=== PATIENT | female | born 1980 | race Caucasian/White ===

== ENCOUNTER 2016-07-28 11:19 | Emergency (ER) | payer OTHER ==
[2016-07-28 11:42] VITALS: BP 132/80; PULSE 80; RESP 20; TEMP 97
--- NOTE | 2016-07-28 12:08 | ED ---
Skin/Abscess/FB HPI - General Chief complaint: Skin/Abscess/Foreign Body Stated complaint: Abcess lt under arm Time Seen by Provider: 07/28/16 11:47 Source: patient, RN notes reviewed Mode of arrival: ambulatory Limitations: no limitations - History of Present Illness Initial comments: 36-year-old female presents to emergency Department chief complaint of abscess under the left arm. Patient states that of her about a week now. Patient does admit to a history of abscess but denies any history of MRSA. Patient denies any fever chills with this. Patient denies any drainage or discharge from the area. Patient states she was concerned due to the continued pain and irritation so she thought that she should be evaluated. Patient states that she is not currently having any other symptoms at this time. Patient denies any recent fever, chills, shortness of breath, chest pain, back pain, abdominal pain , nausea vomiting, numbness or tingling, dysuria or hematuria, constipation or diarrhea, headaches or visual changes, or any other current symptoms. - Related Data Home Medications Medication Instructions Recorded Confirmed Pseudoephedrine [Sudafed] 30 mg PO Q4H PRN 07/28/16 07/28/16 Previous Rx's Medication Instructions Recorded Sulfamethox-Tmp 800-160Mg [Bactrim 2 each PO Q12HR #56 tab 07/28/16 DS 800-160 mg] Allergies Allergy/AdvReac Type Severity Reaction Status Date / Time black walnut Allergy Rash/Hives Verified 07/28/16 12:04 venom-honey bee Allergy Swelling Verified 07/28/16 12:04 Review of Systems ROS Statement: Those systems with pertinent positive or pertinent negative responses have been documented in the HPI. ROS Other: All systems not noted in ROS Statement are negative. Past Medical History Past Medical History: GERD/Reflux Additional Past Medical History / Comment(s): pt states her mother told her she had "exercise induced asthma" as a child. History of Any Multi-Drug Resistant Organisms: None Reported Past Surgical History: Appendectomy Past Anesthesia/Blood Transfusion Reactions: No Reported Reaction Past Psychological History: Panic Disorder Smoking Status: Former smoker Past Alcohol Use History: Rare Past Drug Use History: None Reported - Past Family History Mother Family Medical History: Diabetes Mellitus, Thyroid Disorder Father Additional Family Medical History / Comment(s): complications from hiv/aids. General Exam Limitations: no limitations Head exam: Present: atraumatic, normocephalic, normal inspection ENT exam: Present: normal exam, mucous membranes moist Neck exam: Present: normal inspection. Absent: tenderness, meningismus, lymphadenopathy Respiratory exam: Present: normal lung sounds bilaterally. Absent: respiratory distress, wheezes, rales, rhonchi, stridor Cardiovascular Exam: Present: regular rate, normal rhythm, normal heart sounds. Absent: systolic murmur, diastolic murmur, rubs, gallop, clicks Neurological exam: Present: alert, oriented X3, CN II-XII intact. Absent: motor sensory deficit Psychiatric exam: Present: normal affect, normal mood Skin exam: Present: warm, dry, intact, other (Abscess under left armassociated induration or redness.) Course Vital Signs 07/28/16 11:40 Temperature 97 F L Pulse Rate 80 Respiratory 20 Rate Blood Pressure 132/80 O2 Sat by Pulse 99 Oximetry Procedures - Procedures Initial comment: Procedure: Incision and drainage The skin overlying the abscess was prepped with Betadine, and anesthetized with 1% lidocaine without epinephrine. A #11 scalpel was then used to incise the abscess. Some purulent material was then extracted from the lesion. Wound culture obtained. Gauze dressing placed on top, The patient tolerated the procedure well. Medical Decision Making - Medical Decision Making 36-year-old female presents emergency Department chief complaint of left axilla abscess. This time patient underwent I&D. We discussed this Xanax this time we discussed following up on the culture. We discussed return parameters and all patient's questions. She stated that she understood she has been given the plan all cushions have answered. She'll be discharged. Disposition Clinical Impression: Abscess of left axilla Disposition: HOME SELF-CARE Condition: Stable Instructions: Abscess (ED), Abscess Incision and Drainage (ED) Additional Instructions: Please use medication as discussed. Please follow up with family doctor if symptoms have not improved over the next two days. Please return to the emergency room if your symptoms increase or worsen or for any other concerns. Prescriptions: Sulfamethox-Tmp 800-160Mg [Bactrim DS 800-160 mg] 2 each PO Q12HR #56 tab Referrals: Mega Cifuentes MD [Primary Care Provider] - 1-2 days Time of Disposition: 12:08
== END 2016-07-28 12:19 | disposition home or self-care (01) ==
LOC: EC 11:19
DX: L02.412 Cutaneous abscess of left axilla (principal)
CPT/HCPCS: 87070; 87077; 87186; 87205; 99283

== ENCOUNTER → 2016-12-04 | Outpatient (CLI) | payer OTHER ==
--- NOTE | 2016-12-05 08:14 | US ---
EXAMINATION TYPE: US OB <=14 wks transvag DATE OF EXAM: 12/04/2016 COMPARISON: NONE CLINICAL HISTORY: Z36 CONFIRM DATES. EXAM PERFORMED: Transvaginal (TV) and Transabdominal (TA) EXAM MEASUREMENTS: GESTATIONAL AGE / DATING Physician Established: (9 weeks/2 days) EDC: 07/07/2017 Dates by LMP: ( 9 weeks/2 days) EDC: 07/07/2017 Dates by First Scan: This is first scan. Dates by Current Scan for: (8 weeks/6 days) EDC: 07/10/2017 MATERNAL ANATOMY Uterus: 13.0 x 6.3 x 8.5 cm Right Ovary: 3.3 x 2.3 x 2.0 cm Left Ovary: 3.8 x 2.3 x 2.5 cm Post CDS / Adnexa: WNL Presence of free fluid: WNL Presence of corpus luteal cyst: YES Presence of subchorionic bleed: NO GESTATION / SURVEY CRL: 2.4 (9 weeks/1 days) Yolk Sac (normal less than 6mm): 0.29 Heart Rate: 166 bpm Rhythm: Normal IUP: Viable IU Date of LMP: 09/30/2016 Impressions: 1. Single intrauterine gestation estimated at 9 weeks 1 days gestation based on the current crown-rum p length. This would've a calculated EDC of 07/08/2017. 2. Cardiac activity measures 175 bpm
== END | disposition home or self-care (01) ==
LOC: RADUSWWP 15:26
PROVIDERS: ATTEND Obstetrics & Gynecology
DX: Z36 Encounter for antenatal screening of mother (principal); Z3A.09 9 weeks gestation of pregnancy
CPT/HCPCS: 76801; 76817

== ENCOUNTER → 2016-12-24 | Outpatient (CLI) | payer OTHER ==
[2016-12-24 13:00] LABS: CH 30.9; CHCM 34.8; HCT 37.2 % (34.0-46.0); HDW 2.94; HGB 13.2 gm/dL (11.4-16.0); MCH 31.7 pg (25.0-35.0); MCHC 35.5 g/dL (31.0-37.0); MCV 89.3 fL (80.0-100.0); Mean Platelet Volume 6.5; RBC 4.17 m/uL (3.80-5.40); RDW 13.9 % (11.5-15.5); WBC 12.3 k/uL (3.8-10.6)
[2016-12-24 13:10] LABS: Glucose 92 mg/dL (74-99); Non-African American GFR(MDRD) >60 (>60 ml/min/1.73 sqM)
[2016-12-24 13:38] LABS: Hepatitis B Surface Ag Index 0.05
[2016-12-24 19:17] LABS: Treponemal Ab Non-Reactive (Non-Reactive)
== END | disposition home or self-care (01) ==
LOC: LABWHC1 12:06
PROVIDERS: ATTEND Obstetrics & Gynecology
DX: O26.811 Pregnancy related exhaustion and fatigue, first trimester (principal); Z3A.00 Weeks of gestation of pregnancy not specified
CPT/HCPCS: 36415; 82565; 82947; 85027; 86762; 86780; 86850; 86900; 86901; 87340; 87390

== ENCOUNTER 2017-07-07 15:33 | Inpatient (IN) | payer OTHER ==
--- NOTE | 2017-07-14 20:24 | P.HPOB ---
History of Present Illness H&P Date: 07/14/17 Chief Complaint: Induction of labor This is a 37 y.o. female, 2, para 1, with an estimated date of confinement of 07/07/2017, estimated gestational age of 41-1/7 weeks, who presents for induction of labor secondary to postdates. She has good movement and has been doing twice weekly NSTs. She is complaining of irregular contractions. labs: GC/Chlamydia-neg HIV-neg Syphilis antibody-neg Random glucose-92 Hepatitis B surface antigen-neg Hemoglobin-13.2 Rubella-low positive Blood type-O+ Antibody screen-negative Obstetrical ultrasound-normal anatomy One hour Glucola-167 Three-hour Glucola-within normal limits Group B streptococcus-negative Obstetrical history: . History of 1 vaginal delivery at term. Gynecologic history: No history of sexually transmitted diseases Social history: She is single. Review of Systems Constitutional: Denies chills, Denies fever Eyes: denies blurred vision, denies pain Ears, nose, mouth and throat: Denies headache, Denies sore throat Cardiovascular: Denies chest pain, Denies shortness of breath Respiratory: Denies cough Gastrointestinal: Reports abdominal pain (Irregular contractions) Musculoskeletal: Reports low back pain Integumentary: Denies pruritus, Denies rash Neurological: Denies numbness, Denies weakness Psychiatric: Denies anxiety, Denies depression Past Medical History Past Medical History: GERD/Reflux Additional Past Medical History / Comment(s): pt states her mother told her she had "exercise induced asthma" as a child. History of Any Multi-Drug Resistant Organisms: None Reported Past Surgical History: Appendectomy Past Anesthesia/Blood Transfusion Reactions: No Reported Reaction Past Psychological History: Panic Disorder Smoking Status: Former smoker Past Alcohol Use History: Rare Past Drug Use History: None Reported - Past Family History Mother Family Medical History: Diabetes Mellitus, Thyroid Disorder Father Additional Family Medical History / Comment(s): complications from hiv/aids. Medications and Allergies Home Medications Medication Instructions Recorded Confirmed Type Pnv,Calcium 72/Iron/Folic Acid 1 tab PO DAILY 07/14/17 07/14/17 History [ Plus Tablet] Allergies Allergy/AdvReac Type Severity Reaction Status Date / Time black walnut Allergy Rash/Hives Verified 07/28/16 12:04 venom-honey bee Allergy Swelling Verified 07/28/16 12:04 Exam Osteopathic Statement: *. No significant issues noted on an osteopathic structural exam other than those noted in the History and Physical/Consult. HEENT: Within normal limits Heart: Regular rate and rhythm Lungs: Clear to auscultation bilaterally Abdomen: Cervix: 2 cm/60%/-3 heart tones: 140s by Doppler Extremities: Negative Homans Assessment and Plan (1) 41 weeks gestation of Status: Acute Code(s): Z3A.41 - 41 WEEKS GESTATION OF SNOMED Code( s): 76779389 Plan: Proceed with oxytocin induction of labor. Expectant management. Epidural anesthesia if desired.
[2017-07-15] MEDS ORDERED: CARBOPROST TROMETHAMINE 250 MCG/ML 1 ML AMP IM PRN (06:11)
[2017-07-15] MEDS ORDERED: OXYTOCIN 10 UNIT/ML 1 ML VIAL IM PRN (06:11)
[2017-07-15] MEDS ORDERED: OXYTOCIN 20 UNITS/1000 ML NS 1,000 ML IV SCH ×2 (06:11→17:32)
[2017-07-15] MEDS ORDERED: METHYLERGONOVINE 0.2 MG/ML 1 ML AMP IM PRN (06:11)
[2017-07-15] MEDS ORDERED: TERBUTALINE 1 MG/ML VIAL SQ PRN (06:11)
[2017-07-15] MEDS ORDERED: LIDOCAINE 1% 20 ML VIAL (10MG/ML) FOR IV START INTRADERMA PRN (06:11)
[2017-07-15] MEDS ORDERED: LIDOCAINE 1% (PF) 10 MG/ML (30 ML SDV) SQ PRN (06:11)
[2017-07-15] MEDS: LACTATED RINGERS 1,000 ML IV SCH ×2 (06:35→11:23)
[2017-07-15 06:47] LABS: Basophils # (A) 0.1 k/uL (0-0.2); Basophils % (A) 0 %; Eosinophils # (A) 0.3 k/uL (0-0.7); Eosinophils % (A) 2 %; HCT 42.8 % (34.0-46.0); HGB 14.5 gm/dL (11.4-16.0); Lymphocytes # (A) 3.1 k/uL (1.0-4.8); Lymphocytes % (A) 23 %; MCH 31.3 pg (25.0-35.0); MCHC 33.8 g/dL (31.0-37.0); MCV 92.6 fL (80.0-100.0); Mean Platelet Volume 7.4; Monocytes # (A) 0.5 k/uL (0-1.0); Monocytes % (A) 4 %; Neutrophils # (A) 9.1 k/uL (1.3-7.7); Neutrophils % (A) 69 %; Platelet Count 222 k/uL (150-450); RBC 4.62 m/uL (3.80-5.40); RDW 15.3 % (11.5-15.5); WBC 13.2 k/uL (3.8-10.6)
[2017-07-15 08:16] VITALS: BMI 51.6
[2017-07-15] MEDS ORDERED: BUTORPHANOL 1 MG/ML 1 ML VIAL IV PRN (08:48)
[2017-07-15] MEDS ORDERED: SODIUM CHLORIDE 0.9% 100 ML BAG ONE (10:48)
[2017-07-15] MEDS ORDERED: BUPIVACAINE (PF) 0.25% 30 ML VIAL ONE (10:48)
[2017-07-15] MEDS ORDERED: fentaNYL (PF) 50 MCG/ML 5 ML AMP ONE (10:48)
[2017-07-15] MEDS ORDERED: diphenhydrAMINE 25 MG CAP PO PRN (17:32)
[2017-07-15] MEDS ORDERED: ZOLPIDEM 5 MG TAB PO PRN (17:32)
[2017-07-15] MEDS ORDERED: ACETAMINOPHEN TAB 325 MG TAB PO PRN (17:32)
[2017-07-15] MEDS ORDERED: MEASLES-MUMPS-RUBELLA VACC/PF 12,500 UNIT/0.5 ML VIAL SQ ONE (17:32)
[2017-07-15] MEDS ORDERED: LANOLIN CREAM 5 GM TUBE TOPICAL PRN (17:32)
[2017-07-15] MEDS ORDERED: diphenhydrAMINE 50 MG/ML 1 ML VIAL IVP PRN ×2 (17:32)
[2017-07-15] MEDS ORDERED: diphenhydrAMINE 50 MG CAP PO PRN (17:32)
[2017-07-15] MEDS ORDERED: BENZOCAINE/MENTHOL SPRAY 1 GM/SPRAY AEROSOL TOPICAL PRN (17:32)
[2017-07-15] MEDS ORDERED: WITCH HAZEL 1 EACH MED..PAD TOPICAL PRN (17:32)
[2017-07-15] MEDS ORDERED: SIMETHICONE 80 MG CHEWABLE PO PRN (17:32)
[2017-07-15] MEDS ORDERED: HYDROCORTISONE 2.5% RECTAL CREAM 30 GM TUBE RECTAL PRN (17:32)
--- NOTE | 2017-07-15 17:32 | P.PROBDLV ---
Vaginal Delivery Note - . Vaginal Delivery Note: The patient progressed to complete dilation after oxytocin induction of labor and artificial rupture membranes with thick meconium noted. After reaching complete dilation she began pushing. 's head came to a crown. With one further push the 's head delivered across the perineum followed immediately by the remainder the baby. Nose and mouth were bulb suctioned after delivery and was placed on mother's abdomen. Cord was clamped and cut and was taken to warmer for evaluation. Brisk cry was noted. TUBING DRIER was present for delivery. A viable female was noted with scores of 8 at 1 minute and 9 at 5 minutes and weight of 7 lbs. 7 oz. Placenta delivered shortly thereafter, intact, with a three-vessel cord. Uterus contracted fairly well after oxytocin was given and uterine massage was carried out. Bladder was drained with a catheter. Inspection of the perineum revealed a small second-degree perineal laceration. This area was anesthetized with 1% lidocaine and sutured with 3-0 Vicryl suture in a running locked fashion. Estimated blood loss is approximately 200 mL's. Mother and are in stable condition.
[2017-07-15] MEDS: IBUPROFEN 600 MG TAB PO PRN (18:28)
[2017-07-16] MEDS: IBUPROFEN 600 MG TAB PO PRN ×3 (00:16→21:20)
[2017-07-16] MEDS: SENNOSIDES-DOCUSATE SODIUM 1 EACH TAB PO SCH ×3 (06:00→21:21)
--- NOTE | 2017-07-16 08:26 | P.PNOBGVD ---
Subjective - Subjective Principal diagnosis: Status post vaginal delivery day #1 Interval history: Patient is doing well. She is breast-feeding. Lochia is decreasing. Pain is fairly well controlled with ibuprofen. Patient reports: Reports appetite normal, Reports voiding normally, Reports pain well controlled, Reports ambulating normally [place]: doing well, nursing well Objective - Latest Vital Signs Latest vital signs: Vital Signs Temp Pulse Resp BP BP Pulse Ox 07/16/17 08:00 98.8 F 83 16 117/58 97 07/16/17 04:00 97.7 F 80 18 119/67 07/15/17 23:00 97.7 F 86 16 127/67 07/15/17 19:10 92 16 128/57 07/15/17 18:35 97.7 F 88 16 113/54 07/15/17 18:05 95 16 118/73 07/15/17 17:50 94 16 117/68 07/15/17 17:35 93 16 119/57 07/15/17 17:20 96 16 117/56 07/15/17 17:05 98.2 F 101 H 16 133/72 Intake and Output 07/15/17 07/16/17 07/16/17 22:59 06:59 14:59 Output Total 1300 Balance -1300 Output: Urine 900 Straight 600 Estimated Blood Loss 400 Other: # Voids 1 1 # Bowel Movements 1 - Exam Extremities: Present: edema (1+). Absent: tenderness Abdomen: Present: normal appearance, soft. Absent: distention, tenderness Uterus: Present: normal, firm. Absent: tenderness Assessment and Plan Assessment: Impression is status post vaginal delivery day #1 (1) 41 weeks gestation of Current Visit: Yes Status: Acute Code(s): Z3A.41 - 41 WEEKS GESTATION OF SNOMED Code(s): 69083042 Plan: Continue with care today. Anticipate discharge home tomorrow.
[2017-07-16 08:31] LABS: Basophils # (A) 0.1 k/uL (0-0.2); Basophils % (A) 0 %; Eosinophils # (A) 0.1 k/uL (0-0.7); Eosinophils % (A) 1 %; HGB 12.9 gm/dL (11.4-16.0); Lymphocytes # (A) 2.9 k/uL (1.0-4.8); Lymphocytes % (A) 16 %; MCH 31.5 pg (25.0-35.0); MCHC 32.2 g/dL (31.0-37.0); Mean Platelet Volume 7.3; Monocytes # (A) 0.7 k/uL (0-1.0); Monocytes % (A) 4 %; Neutrophils % (A) 78 %; Platelet Count 184 k/uL (150-450); RBC 4.08 m/uL (3.80-5.40); RDW 15.1 % (11.5-15.5)
[2017-07-17 07:54] VITALS: BP 122/83; PULSE 79; RESP 16; TEMP 98.4
[2017-07-17] MEDS: SENNOSIDES-DOCUSATE SODIUM 1 EACH TAB PO SCH (08:10)
--- NOTE | 2017-07-17 10:35 | P.DS ---
Providers Date of admission: 07/15/17 06:01 Expected date of discharge: 07/17/17 Attending physician: Tia Chawla Primary care physician: Esau Ayoub - Discharge Diagnosis(es) (1) Normal vaginal delivery Current Visit: Yes Status: Acute Hospital Course: Pt presented for induction of labor. She underwent normal vaginal delivery. HEr pp course was uncomplicated. She will be discharged home PPD #2 in stable condition to follow up with Dr Chawla in 6 weeks. Plan - Discharge Summary New Discharge Prescriptions: New Ibuprofen [Motrin] 600 mg PO Q6HR PRN #60 tab PRN Reason: Mild Pain Or Fever >= 100.5 Continue Pnv,Calcium 72/Iron/Folic Acid [ Plus Tablet] 1 tab PO DAILY Discharge Medication List Pnv,Calcium 72/Iron/Folic Acid [ Plus Tablet] 1 tab PO DAILY 07/14/17 [ History] Ibuprofen [Motrin] 600 mg PO Q6HR PRN #60 tab 07/16/17 [Rx] Follow up Appointment(s)/Referral(s): Tia Chawla DO [Doctor of Osteopathic Medicine] - 6 Weeks Activity/Diet/Wound Care/Special Instructions: Instructions 1. Do not begin any exercise program for 3 weeks. 2. Do not resume sexual relations for 3 weeks or longer if uncomfortable. 3. You may take tub baths or showers at any time. 4. You may use tampons if desired after 3 weeks. 5. Keep the area of episiotomy (stitches) clean and dry. 6. If you are not nursing, wear a good fitting, supportive bra during the day and limit fluid intake for at least 1 week to prevent breast engorgement. 7. Call the office, [phone], within the next week to make appointment for your 6 week checkup if it has not already been made. 8. Report any of the following occurrences to the doctor promptly: a. Heavy, excessive bleeding b. Chills, fever c. Burning or frequency of urination d. Pain or redness and breasts if nursing e. Increasing pain or swelling in episiotomy (stitches). In addition to the above instructions, the following additional should be followed: 1. No heavy lifting or straining (exercising) until after 6 week checkup. 2. Keep abdominal incision clean and dry: You may wear a dressing if more comfortable. 3. Make office appointment for 10 days after going home or as instructed by her doctor. Discharge Disposition: HOME SELF-CARE
== END 2017-07-17 12:00 | disposition home or self-care (01) | DRG 775 ==
LOC: 4FBP 07-15 06:01
PROVIDERS: ADMIT Obstetrics & Gynecology; ATTEND Obstetrics & Gynecology
PROC: 10E0XZZ Delivery of Products of Conception, External Approach (ICD-10-PCS; principal; 2017-07-15)
PROC: 0KQM0ZZ Repair Perineum Muscle, Open Approach (ICD-10-PCS; 2017-07-15)
PROC: 10907ZC Drainage of Amniotic Fluid, Therapeutic from Products of Conception, Via Natural or Artificial Opening (ICD-10-PCS; 2017-07-15)
PROC: 3E0R3NZ Introduction of Analgesics, Hypnotics, Sedatives into Spinal Canal, Percutaneous Approach (ICD-10-PCS; 2017-07-15)
PROC: 00HU33Z Insertion of Infusion Device into Spinal Canal, Percutaneous Approach (ICD-10-PCS; 2017-07-15)
DX: O48.0 Post-term pregnancy (principal); O70.1 Second degree perineal laceration during delivery; O77.0 Labor and delivery complicated by meconium in amniotic fluid; Z37.0 Single live birth; Z3A.41 41 weeks gestation of pregnancy; Z90.89 Acquired absence of other organs; Z87.891 Personal history of nicotine dependence; Z83.3 Family history of diabetes mellitus; Z83.0 Family history of human immunodeficiency virus [HIV] disease; Z91.030 Bee allergy status; Z91.018 Allergy to other foods; Z86.59 Personal history of other mental and behavioral disorders
CPT/HCPCS: 85025; 88307; 90707

== ENCOUNTER 2020-04-17 06:49 | Day surgery (SDC) | payer OTHER ==
[2020-04-16 11:37] VITALS: BMI 52.4
[~2020-04-17 06:49] MED LIST: LACTATED RINGERS 1,000 ML IV SCH; LIDOCAINE 1% (10MG/ML) FOR IV START INTRADERMA PRN
[2020-04-17 07:30] VITALS: TEMP 97.1
[2020-04-17] MEDS ORDERED: PROPOFOL 10 MG/ML 20 ML VIAL IV ONE (07:53)
[2020-04-17] MEDS ORDERED: GLYCOPYRROLATE 0.2 MG/ML 2 ML VIAL ONE (07:53)
[2020-04-17] MEDS ORDERED: LIDOCAINE 1% INJ 10MG/ML (20 ML MDV) ONE (07:53)
--- NOTE | 2020-04-17 08:02 | P.PCN ---
Date of Procedure: 04/17/20 Procedure(s) Performed: BRIEF HISTORY: Patient is a 40-year-old, pleasant, female scheduled for an upper endoscopy as a part of evaluation of long-standing history of GERD several years duration.. She was recently started on omeprazole 20 mg daily and doing well. PROCEDURE PERFORMED: Esophagogastroduodenoscopy with biopsy. PREOPERATIVE DIAGNOSIS: Long-standing history of GERD. IV sedation per anesthesia. PROCEDURE: After informed consent was obtained, the patient was brought into the endoscopy unit. IV sedation was administered by Anesthesia under continuous monitoring. Initially the Olympus GIF-140 video endoscope was inserted into the mouth. Esophagus intubated without any difficulty. It was gradually advanced into the stomach and duodenum and carefully examined. The bulb and the second part of the duodenum appeared normal. The scope at this time was withdrawn to the stomach, adequately insufflated with air, and upon careful examination, mucosa of the antrum, had mild gastritis and biopsies were done from this area. The body, cardia and the fundus appeared normal. The scope was then withdrawn into the esophagus. The GE junction was located at 41 cm from the incisors. The esophagus appeared normal. There were no erosions or ulcerations seen and the patient tolerated the procedure well. IMPRESSION: 1. Normal-appearing esophagus with no evidence of esophagitis or Leach's esophagus. 2. Mild antral gastritis. RECOMMENDATIONS: The findings of this examination were discussed with the patient as well as a family. She was advised to follow with the biopsy results. Continue omeprazole 20 mg daily and follow antireflux measures..
[2020-04-17 08:33] VITALS: BP 118/77; PULSE 75; RESP 20
== END 2020-04-17 08:51 | disposition home or self-care (01) ==
LOC: ORWHC2ENDO 06:49
PROVIDERS: ATTEND Internal Medicine Gastroenterology
DX: K29.50 Unspecified chronic gastritis without bleeding (principal); K21.9 Gastro-esophageal reflux disease without esophagitis; Z79.899 Other long term (current) drug therapy; E78.5 Hyperlipidemia, unspecified; E66.01 Morbid (severe) obesity due to excess calories; F32.9 Major depressive disorder, single episode, unspecified; Z98.890 Other specified postprocedural states; Z68.43 Body mass index [BMI] 50.0-59.9, adult
CPT/HCPCS: 81025; 88305; 43239; J2001; J2704

== ENCOUNTER 2022-02-25 22:35 | Emergency (ER) | payer OTHER ==
[2022-02-25 22:40] VITALS: TEMP 98.4
--- NOTE | 2022-02-25 23:02 | XR ---
EXAMINATION TYPE: XR foot complete RT DATE OF EXAM: 02/25/2022 COMPARISON: NONE HISTORY: Pain and swelling TECHNIQUE: 3 views FINDINGS: Metatarsals are intact. I see no fracture nor dislocation. There is plantar calcaneal spurr ing. There are no erosions. There is some soft tissue swelling. IMPRESSION: Negative right foot exam. No fracture seen. Calcaneal spurring. Soft tissue swelling of the forefoot.
[2022-02-25] MEDS ORDERED: MORPHINE SULFATE 4 MG/ML SYRINGE IM STA (23:09)
[2022-02-25] MEDS ORDERED: IBUPROFEN 800 MG TAB PO STA (23:09)
--- NOTE | 2022-02-25 23:35 | XR ---
EXAMINATION TYPE: XR ankle complete RT DATE OF EXAM: 02/25/2022 COMPARISON: NONE HISTORY: Pain TECHNIQUE: 3 views FINDINGS: Ankle mortise is anatomic. I see no fracture nor dislocation. There is plantar calcaneal sp urring. There is lateral soft tissue swelling. There is slight widening of the lateral joint space in the frontal projection. IMPRESSION: There is some widening of the lateral ankle joint space could relate to ligamentous tear. Lateral mild soft tissue swelling
--- NOTE | 2022-02-25 23:38 | ED ---
Lower Extremity Injury HPI - General Chief Complaint: Extremity Injury, Lower Stated Complaint: Rt Ankle Injury Time Seen by Provider: 02/25/22 22:54 Source: patient Mode of arrival: ambulatory Limitations: no limitations - History of Present Illness Initial Comments: She is a 42-year-old female who presents to the emergency department with a chief complaint of right foot pain. Patient states she stepped off the sidewalk at her child's school and landed on the outside of her right foot. Patient states initially she did not experience much pain but throughout the day the pain has gotten much worse with worsening of the swelling. Reports severe pain on the top outside of her foot near her ankle. Took Tylenol with little relief. Denies numbness and tingling. - Related Data Home Medications Medication Instructions Recorded Confirmed Escitalopram [Lexapro] 10 mg PO DAILY 04/16/20 04/17/20 Omeprazole [PriLOSEC] 40 mg PO DAILY 04/16/20 04/17/20 Previous Rx's Medication Instructions Recorded HYDROcodone/APAP 7.5-325MG [Bicknell 1 tab PO Q4HR PRN #18 tab 02/25/22 7.5-325] Allergies Allergy/AdvReac Type Severity Reaction Status Date / Time black walnut Allergy Rash/Hives Verified 02/25/22 22:40 venom-honey bee Allergy Swelling Verified 02/25/22 22:40 Review of Systems ROS Statement: Those systems with pertinent positive or pertinent negative responses have been documented in the HPI. ROS Other: All systems not noted in ROS Statement are negative. Past Medical History Past Medical History: GERD/Reflux, Hyperlipidemia, Pneumonia, Skin Disorder Additional Past Medical History / Comment(s): palpitations from panic attacks, "exercise induced asthma" as a child. hx gastritis, rosacea, dermatitis, History of Any Multi-Drug Resistant Organisms: MRSA Date of last positivie culture/infection: 01/06/2016 MDRO Source:: [place] Past Surgical History: Appendectomy Past Anesthesia/Blood Transfusion Reactions: No Reported Reaction Past Psychological History: Anxiety, Panic Disorder Smoking Status: Former smoker Past Alcohol Use History: Occasional Past Drug Use History: None Reported - Past Family History Father Family Medical History: Cancer Additional Family Medical History / Comment(s): from complications from hiv/aids. skin cancer General Exam Limitations: no limitations General appearance: alert, in no apparent distress Head exam: Present: atraumatic, normocephalic, normal inspection Respiratory exam: Present: normal lung sounds bilaterally. Absent: respiratory distress, wheezes, rales, rhonchi, stridor Extremities exam: Present: other (moderate swelling and pain over proximal fifth metatarsal of right foot. moderate swelling of lateral right ankle with significant pain. ROM limited due to pain. neurovascularly intact ) Neurological exam: Present: alert, oriented X3, CN II-XII intact Psychiatric exam: Present: normal affect, normal mood Skin exam: Present: warm, dry, intact, normal color. Absent: rash Course Vital Signs 02/25/22 02/26/22 22:36 00:17 Temperature 98.4 F Pulse Rate 70 78 Respiratory 22 15 Rate Blood Pressure 141/66 O2 Sat by Pulse 97 97 Oximetry Medical Decision Making - Medical Decision Making This is a 42-year-old female who presents with right foot pain. There is moderate swelling and pain over proximal fifth metatarsal of right foot and moderate swelling of the lateral right ankle with significant pain. ROM limited due to pain. Neurovascularly intact. Right foot x-ray is negative for fracture and dislocation. There is some soft tissue swelling. Right foot x-ray shows widening of the lateral ankle joint space that could be related to ligamentous tear. Results discussed with patient. Patient placed in Aircast splint. Crutches given. Patient nonweightbearing until orthopedic evaluation. She'll be sent home with a short course of Bicknell for severe pain. Fracture education provided in detail. Dr. Ho is my attending. Disposition Clinical Impression: Right foot pain, Right ankle pain Disposition: HOME SELF-CARE Condition: Good Instructions (If sedation given, give patient instructions): Foot Sprain (ED) Additional Instructions: Take Bicknell as directed. Please also take anti-inflammatories such as Motrin for the next 48 hours to decrease swelling. Rest and apply ice to injury. Use crutches and do not bear weight until orthopedic evaluation. Schedule appointment with personnel specialist in the morning. Return to the emergency department if you experience new, concerning, or worsening symptoms. Prescriptions: HYDROcodone/APAP 7.5-325MG [Bicknell 7.5-325] 1 tab PO Q4HR PRN #18 tab PRN Reason: Pain Is patient prescribed a controlled substance at d/c from ED?: Yes Referrals: Marc Vasquez MD [Primary Care Provider] - 1-2 days Rafaela Justin DO [Doctor of Osteopathic Medicine] - 1-2 days Time of Disposition: 23:37
[2022-02-26 00:18] VITALS: BP 141/66; PULSE 78; RESP 15
== END 2022-02-26 00:22 | disposition home or self-care (01) ==
LOC: EC 22:35
DX: M25.571 Pain in right ankle and joints of right foot (principal); K21.9 Gastro-esophageal reflux disease without esophagitis; E78.5 Hyperlipidemia, unspecified; F41.9 Anxiety disorder, unspecified; Z87.891 Personal history of nicotine dependence; Z91.018 Allergy to other foods; Z91.030 Bee allergy status; Z79.899 Other long term (current) drug therapy; W10.1XXA Fall (on)(from) sidewalk curb, initial encounter
CPT/HCPCS: 73610; 73630; 99283; 96372; J2270

== ENCOUNTER 2022-11-06 09:18 | Emergency (ER) | payer OTHER ==
--- NOTE | 2022-11-06 10:09 | XR ---
EXAMINATION TYPE: XR knee complete LT DATE OF EXAM: 11/06/2022 CLINICAL HISTORY: Trauma injury with pain TECHNIQUE: Three views of the left knee are obtained. COMPARISON: None. FINDINGS: There is no acute fracture/dislocation evident in left knee. Moderate narrowing medial tib iofemoral compartment. Mild to moderate narrowing and mild spurring patellofemoral compartment. The overlying soft tissue appears unremarkable. IMPRESSION: There is no acute fracture or dislocation in the left knee.
[2022-11-06] MEDS ORDERED: HYDROmorphone 0.5 MG/0.5 ML SYRINGE IVP STA (10:21)
[2022-11-06] MEDS ORDERED: KETOROLAC 15 MG/ML 1 ML VIAL IVP STA (10:21)
--- NOTE | 2022-11-06 10:27 | ED ---
Lower Extremity Injury HPI - General Chief Complaint: Extremity Injury, Lower Stated Complaint: Left knee pain Time Seen by Provider: 11/06/22 09:21 Source: patient, RN notes reviewed Mode of arrival: ambulatory Limitations: no limitations - History of Present Illness Initial Comments: 42-year-old female presents emergency Department chief complaint left knee injury. Patient reportedly fell into a curb with his metal sticking out. Tetanus up-to-date. Patient noted to have an abrasion to her left knee. Patient was given morphine prior arrival of pain. Patient states it's very painful to move denies any pain above or below her left knee no head injury no other complaints. - Related Data Home Medications Medication Instructions Recorded Confirmed Escitalopram [Lexapro] 10 mg PO DAILY 04/16/20 04/17/20 Omeprazole [PriLOSEC] 40 mg PO DAILY 04/16/20 04/17/20 Previous Rx's Medication Instructions Recorded HYDROcodone/APAP 7.5-325MG [Gamaliel 1 tab PO Q4HR PRN #18 tab 02/25/22 7.5-325] HYDROcodone/APAP 7.5-325MG [Gamaliel 1 tab PO Q6HR PRN 3 Days #12 tab 11/06/22 7.5-325] Allergies Allergy/AdvReac Type Severity Reaction Status Date / Time black walnut Allergy Rash/Hives Verified 11/06/22 09:32 venom-honey bee Allergy Swelling Verified 11/06/22 09:32 Review of Systems ROS Statement: Those systems with pertinent positive or pertinent negative responses have been documented in the HPI. ROS Other: All systems not noted in ROS Statement are negative. Past Medical History Past Medical History: GERD/Reflux, Hyperlipidemia, Pneumonia, Skin Disorder Additional Past Medical History / Comment(s): palpitations from panic attacks, "exercise induced asthma" as a child. hx gastritis, rosacea, dermatitis, History of Any Multi-Drug Resistant Organisms: MRSA Date of last positivie culture/infection: 01/06/2016 MDRO Source:: ROSA Past Surgical History: Appendectomy Past Anesthesia/Blood Transfusion Reactions: No Reported Reaction Past Psychological History: Anxiety, Panic Disorder Smoking Status: Former smoker Past Alcohol Use History: Occasional Past Drug Use History: None Reported - Past Family History Father Family Medical History: Cancer Additional Family Medical History / Comment(s): from complications from hiv/aids. skin cancer General Exam Limitations: no limitations General appearance: alert, in no apparent distress Head exam: Present: atraumatic, normocephalic, normal inspection Eye exam: Present: normal appearance, PERRL, EOMI. Absent: scleral icterus, conjunctival injection, periorbital swelling ENT exam: Present: normal exam, normal oropharynx, mucous membranes moist Neck exam: Present: normal inspection, full ROM. Absent: tenderness, meningismus, lymphadenopathy Respiratory exam: Present: normal lung sounds bilaterally. Absent: respiratory distress, wheezes, rales, rhonchi, stridor Cardiovascular Exam: Present: regular rate, normal rhythm, normal heart sounds. Absent: systolic murmur, diastolic murmur, rubs, gallop, clicks Extremities exam: Present: other (Left knee anterior abrasion noted, pain with palpation and any formal range of motion neurovascular intact no tenderness above or below the left knee) Neurological exam: Present: alert Skin exam: Present: warm, dry, intact, normal color. Absent: rash Course Vital Signs 11/06/22 11/06/22 09:29 11:38 Temperature 97.8 F 97.9 F Pulse Rate 67 68 Respiratory 20 16 Rate Blood Pressure 131/80 129/76 O2 Sat by Pulse 100 100 Oximetry Medical Decision Making - Medical Decision Making Was pt. sent in by a medical professional or institution (JIMMY Reddy, [employer]WORK ARCHITECT, urgent care, hospital, or custodial...) When possible be specific @ -No Did you speak to anyone other than the patient for history (EMS, parent, family, police, friend...)? What history was obtained from this source @ -EMS provided prehospital medications, injury Did you review nursing and triage notes (agree or disagree)? Why? @ -I reviewed and agree with nursing and triage notes Were old charts reviewed (outside hosp., previous admission, EMS record, old EKG, old radiological studies, urgent care reports/EKG's, custodial records)? Report findings @ -No old charts were reviewed Differential Diagnosis (chest pain, altered mental status, abdominal pain women, abdominal pain men, vaginal bleeding, weakness, fever, dyspnea, syncope, headache, dizziness, GI bleed, back pain, seizure, CVA, palpatations, mental health, musculoskeletal)? @ -Knee contusion, patellar fracture, femur fracture, tibia fracture EKG interpreted by me (3pts min.). @ -None X-rays interpreted by me (1pt min.). @ -X-ray shows no acute fracture CT interpreted by me (1pt min.). @ -None done U/S interpreted by me (1pt. min.). @ -None done What testing was considered but not performed or refused? (CT, X-rays, U/S, labs)? Why? @ -None What meds were considered but not given or refused? Why? @ -None Did you discuss the management of the patient with other professionals (professionals i.e. , PA, [employer] NETWORK ARCHITECT, lab, RT, psych nurse, social security specialist, computer repairer, teacher, radio electronics officer, nurse case management)? Give summary @ -No Was smoking cessation discussed for >3mins.? @ -No Was critical care preformed (if so, how long)? @ -No Were there social determinants of health that impacted care today? How? (Homelessness, low income, unemployed, alcoholism, drug addiction, transportation, low edu. Level, literacy, decrease access to med. care, fci, rehab)? @ -No Was there de-escalation of care discussed even if they declined (Discuss DNR or withdrawal of care, Hospice)? DNR status @ -No What co-morbidities impacted this encounter? (DM, HTN, Smoking, COPD, CAD, Cancer, CVA, ARF, Chemo, Hep., AIDS, mental health diagnosis, sleep apnea, morbid obesity)? @ -None Was patient admitted / discharged? Hospital course, mention meds given and route, prescriptions, significant lab abnormalities, going to OR and other pertinent info. @ -Discharge patient x-rays negative for acute fracture knee was there was provided for pain relief patient discharged with pain medication return parameters discussed Undiagnosed new problem with uncertain prognosis? @ -No Drug Therapy requiring intensive monitoring for toxicity (Heparin, Nitro, Insulin, Cardizem)? @ -No Were any procedures done? @ -No Diagnosis/symptom? @ -Left knee contusion, abrasion Acute, or Chronic, or Acute on Chronic? @ -Acute Uncomplicated (without systemic symptoms) or Complicated (systemic symptoms)? @ -Uncomplicated Side effects of treatment? @ -No Exacerbation, Progression, or Severe Exacerbation? @ -No Poses a threat to life or bodily function? How? (Chest pain, [place], [place], pneumonia, PE, COPD, DKA, ARF, appy, cholecystitis, CVA, Diverticulitis, Homicidal, Suicidal, threat to staff... and all critical care pts) @ -No Disposition Clinical Impression: Abrasion, left knee, initial encounter, Contusion of left knee Disposition: HOME SELF-CARE Condition: Stable Instructions (If sedation given, give patient instructions): Knee Pain (ED) Additional Instructions: Please return to the Emergency Department if symptoms worsen or any other concerns. Prescriptions: HYDROcodone/APAP 7.5-325MG [Gamaliel 7.5-325] 1 tab PO Q6HR PRN 3 Days #12 tab PRN Reason: Pain Is patient prescribed a controlled substance at d/c from ED?: No Referrals: Marc Vasquez MD [Primary Care Provider] - 1-2 days Rafaela Justin DO [Doctor of Osteopathic Medicine] - 1-2 days Time of Disposition: 11:02
[2022-11-06] MEDS ORDERED: BACITRACIN OINT 1 EACH PACKET TOPICAL ONE (11:01)
[2022-11-06 11:40] VITALS: BP 129/76; PULSE 68; RESP 16; TEMP 97.9
== END 2022-11-06 11:40 | disposition home or self-care (01) ==
LOC: EC 09:18
DX: S80.02XA Contusion of left knee, initial encounter (principal); K21.9 Gastro-esophageal reflux disease without esophagitis; F41.9 Anxiety disorder, unspecified; Z87.891 Personal history of nicotine dependence; Z91.030 Bee allergy status; Z91.018 Allergy to other foods; Z79.899 Other long term (current) drug therapy; W10.1XXA Fall (on)(from) sidewalk curb, initial encounter
CPT/HCPCS: 73562; 99283; 96374; 96375; J1885; J1170

== ENCOUNTER → 2022-11-24 | Outpatient (CLI) | payer OTHER ==
--- NOTE | 2022-11-25 05:29 | MR ---
EXAMINATION TYPE: MR knee LT wo con DATE OF EXAM: 11/24/2022 COMPARISON: Left knee x-ray November 06, 2022 HISTORY: Left knee anterior and posterior pain with swelling after fall injury November 06 TECHNIQUE: Multiplanar, multisequence images of the knee is performed without IV contrast. FINDINGS: MEDIAL MENISCUS: Triangular shaped signal posterior horn does not definitively extend to articular carreon rface. LATERAL MENISCUS: Anterior and posterior horns are intact without tear. CRUCIATE LIGAMENTS: The anterior and posterior cruciate ligaments are intact and unremarkable. COLLATERAL LIGAMENTS: The medial collateral ligament and lateral collateral ligament complex are inta ct and unremarkable. EXTENSOR MECHANISM: Visualized quadriceps and patellar tendons are intact. EFFUSION: Small size suprapatellar joint effusion. POPLITEAL CYST: No popliteal/oliver cyst. TRICOMPARTMENT SPACES: Moderate narrowing patellofemoral compartment with mild spurring. No significa nt spurring medial or lateral tibiofemoral compartments. CARTILAGE: Chondromalacia patella with cartilaginous loss along posterior patellar pole. BONE MARROW SIGNAL: Heterogeneity consistent with red marrow reconversion.. OTHER: Increased fluid signal anterior prepatellar and superficial infrapatellar space. IMPRESSION: 1. Intrasubstance tear posterior horn medial meniscus. No definitive full-thickness meniscal tear. 2. Moderate patellofemoral joint arthropathy quite prominent for patient's chronologic age. 3. Small-sized suprapatellar joint effusion.
== END | disposition home or self-care (01) ==
LOC: RADMRIMAIN 17:39
PROVIDERS: ATTEND Orthopaedic Surgery
DX: S82.002A Unspecified fracture of left patella, initial encounter for closed fracture (principal); S83.242A Other tear of medial meniscus, current injury, left knee, initial encounter; M17.12 Unilateral primary osteoarthritis, left knee; M25.462 Effusion, left knee; X58.XXXA Exposure to other specified factors, initial encounter

== ENCOUNTER 2024-03-16 05:22 | Observation (INO) | payer BC, OTHER ==
--- NOTE | 2024-03-16 05:58 | ED ---
General Adult HPI - General Chief complaint: Shortness of Breath Stated complaint: FELIBERTO Time Seen by Provider: 03/16/24 05:40 Source: patient Mode of arrival: wheelchair Limitations: no limitations - History of Present Illness Initial comments: Dictation was produced using [employer] dictation software. please excuse any grammatical, word or spelling errors. Chief Complaint: 44-year-old female presents to the ER with cough and shortness of breath History of Present Illness: Patient is a 44-year-old female for last 3 to 4 days she presents to the ER with cough and shortness of breath. Patient states that her kids were sick. Patient states her cough is productive. Denies any fever, chills or night sweats. Patient states that she is not normally this short of breath despite being obese. Does have some mild chest pain that is worse whenever she coughs. The ROS documented in this emergency department record has been reviewed and confirmed by me. Those systems with pertinent positive or negative responses have been documented in the HPI. All other systems are other negative and/or noncontributory. - Related Data Previous Rx's Medication Instructions Recorded Albuterol Inhaler [Ventolin Hfa 1 puff INHALATION QID PRN #8 gm 03/19/24 Inhaler] Escitalopram [Lexapro] 10 mg PO DAILY #30 tab 03/19/24 Levofloxacin [Levaquin] 750 mg PO DAILY 3 Days #3 tab 03/19/24 guaiFENesin [Mucinex] 1,200 mg PO Q12HR #56 tab 03/19/24 Allergies Allergy/AdvReac Type Severity Reaction Status Date / Time black walnut Allergy Rash/Hives Verified 03/16/24 07:50 venom-honey bee Allergy Swelling Verified 03/16/24 07:50 Review of Systems ROS Statement: Those systems with pertinent positive or pertinent negative responses have been documented in the HPI. ROS Other: All systems not noted in ROS Statement are negative. Past Medical History Past Medical History: GERD/Reflux, Hyperlipidemia, Pneumonia, Skin Disorder Additional Past Medical History / Comment(s): palpitations from panic attacks, "exercise induced asthma" as a child. hx gastritis, rosacea, dermatitis, History of Any Multi-Drug Resistant Organisms: MRSA Date of last positivie culture/infection: 01/06/2016 MDRO Source:: ARMPIT Past Surgical History: Appendectomy Past Anesthesia/Blood Transfusion Reactions: No Reported Reaction Past Psychological History: Anxiety, Panic Disorder Smoking Status: Former smoker Past Alcohol Use History: Occasional Past Drug Use History: None Reported - Past Family History Father Family Medical History: Cancer Additional Family Medical History / Comment(s): from complications from hiv/aids. skin cancer General Exam - General Exam Comments Initial Comments: PHYSICAL EXAM: General Impression: Alert and oriented x3, acute distress secondary to coughing HEENT: Normocephalic atraumatic, extra-ocular movements intact, pupils equal and reactive to light bilaterally, mucous membranes moist. Cardiovascular: Heart regular rate and rhythm Chest: Able to complete full sentences, no retractions, no tachypnea, slight rhonchi diffusely Abdomen: abdomen soft, non-tender, non-distended, no organomegaly Musculoskeletal: Pulses present and equal in all extremities, no peripheral edema Motor: no focal deficits noted Neurological: CN II-XII grossly intact, no focal motor or sensory deficits noted Skin: Intact with no visualized rashes Psych: Normal affect and mood Limitations: no limitations Course Vital Signs 03/16/24 03/16/24 03/16/24 05:30 06:00 06:08 Temperature 98.5 F Pulse Rate 90 87 88 Respiratory 20 Rate Blood Pressure 146/75 O2 Sat by Pulse 95 Oximetry 03/16/24 03/16/24 03/16/24 06:48 07:58 09:19 Temperature 98.1 F 98.4 F Pulse Rate 80 80 84 Respiratory 20 18 18 Rate Blood Pressure 132/72 124/77 112/76 O2 Sat by Pulse 95 99 94 L Oximetry EKG Findings - EKG Comments: EKG Findings:: My EKG interpretation: Ventricular rate 84, sinus rhythm,. 141, QRS 107, QTc 400. No MA prolongation, no QTC prolongation, no ST or T-wave changes noted. Overall, this EKG is unremarkable Medical Decision Making - Medical Decision Making Was pt. sent in by a medical professional or institution (, PA, EN[employer]PR[employer] SYSTEMS ARCHITECT, urgent care, hospital, or usp...) When possible be specific @ -No Did you speak to anyone other than the patient for history (EMS, parent, family, police, friend...)? What history was obtained from this source @ -No Did you review nursing and triage notes (agree or disagree)? Why? @ -I reviewed and agree with nursing and triage notes Were old charts reviewed (outside hosp., previous admission, EMS record, old EKG, old radiological studies, urgent care reports/EKG's, usp records)? Report findings @ -No old charts were reviewed Differential Diagnosis (chest pain, altered mental status, abdominal pain women, abdominal pain men, vaginal bleeding, musculoskeletal, weakness, fever, dyspnea, syncope, headache, dizziness, GI bleed, back pain, seizure, CVA, palpatations, mental health)? @ -Differential Dyspnea: Coronary syndrome, arrhythmia, tamponade, asthma, COPD, pulmonary embolism, pneumonia, pneumothorax, pulmonary effusion, anaphylaxis, diabetic ketoacidosis, flailed chest, pulmonary contusion, diaphragmatic rupture, anemia, neur omuscular, this is not meant to be an all-inclusive list. EKG interpreted by me (3pts min.). @ -As above X-rays interpreted by me (1pt min.). @ -Pulmonary infiltrates suggesting pneumonia chest x-ray CT interpreted by me (1pt min.). @ -None done U/S interpreted by me (1pt. min.). @ -None done What testing was considered but not performed or refused? (CT, X-rays, U/S, labs)? Why? @ -None What meds were considered but not given or refused? Why? @ -None Was smoking cessation discussed for >3mins.? @ -No Were there social determinants of health that impacted care today? How? (Homelessness, low income, unemployed, alcoholism, drug addiction, transportation, low edu. Level, literacy, decrease access to med. care, care home, rehab)? @ -No Was there de-escalation of care discussed even if they declined (Discuss DNR or withdrawal of care, Hospice)? DNR status @ -No What co-morbidities impacted this encounter? (DM, HTN, Smoking, COPD, CAD, Cancer, CVA, ARF, Chemo, Hep., AIDS, mental health diagnosis, sleep apnea, morbid obesity)? @ -None Was patient admitted / discharged? Hospital course, mention meds given and route, prescriptions, significant lab abnormalities, going to OR and other pertinent info. @ -44-year-old female presents to the emergency department with cough shortness of breath. Vital signs stable. Patient not hypoxic. She is not tachypneic however she does appear to be mildly dyspneic with tractable coughing. Laboratory evaluation obtained. Slight leukocytosis 13.4. X-ray of the chest shows basilar infiltrates suggesting pneumonia. reevaluated 7:13 AM. Disposition options were discussed. Patient did not feel comfortable going home due to the dyspnea. With Levaquin. Will be admitted observation. Case discussed with [facility] Did you discuss the management of the patient with other professionals (professionals i.e. , PA, EN[employer] SYSTEMS ARCHITECT, lab, RT, psych nurse, secondary social studies teacher, turkey egg gatherer, teacher, intelligence officer, case aide)? Give summary @ -No Was critical care preformed (if so, how long)? @ -No Undiagnosed new problem with uncertain prognosis? @ -No Drug Therapy requiring intensive monitoring for toxicity (Heparin, Nitro, Insulin, Cardizem)? @ -No Were any procedures done? @ -No Diagnosis/symptom? Acute, or Chronic, or Acute on Chronic? Uncomplicated (without systemic symptoms) or Complicated (systemic symptoms)? @ -Community acquired pneumonia Side effects of treatment? @ -No Exacerbation, Progression, or Severe Exacerbation? @ -No Poses a threat to life or bodily function? How? (Chest pain, [place], [place], pneumonia, PE, COPD, DKA, ARF, appy, cholecystitis, CVA, Diverticulitis, Homicidal, Suicidal, threat to staff... and all critical care pts) @ -yes - Lab Data Result diagrams: 03/17/24 05:18 03/17/24 05:18 Lab Results 03/16/24 03/16/24 03/16/24 Range/Units 06:02 06:02 06:05 WBC 13.4 H (3.8-10.6) k/uL RBC 5.07 (3.80-5.40) m/uL Hgb 15.3 (11.4-16.0) gm/dL Hct 46.2 H (34.0-46.0) % MCV 91.1 (80.0-100.0) fL MCH 30.1 (25.0-35.0) pg MCHC 33.1 (31.0-37.0) g/dL RDW 13.5 (11.5-15.5) % Plt Count 283 (150-450) k/uL MPV 7.0 Neutrophils % 71 % Lymphocytes % 20 % Monocytes % 4 % Eosinophils % 2 % Basophils % 1 % Neutrophils # 9.5 H (1.3-7.7) k/uL Lymphocytes # 2.6 (1.0-4.8) k/uL Monocytes # 0.5 (0-1.0) k/uL Eosinophils # 0.3 (0-0.7) k/uL Basophils # 0.1 (0-0.2) k/uL Sodium 139 (137-145) mmol/L Potassium 3.5 (3.5-5.1) mmol/L Chloride 106 (98-107) mmol/L Carbon Dioxide 25 (22-30) mmol/L Anion Gap 8 mmol/L BUN 10 (7-17) mg/dL Creatinine 0.82 (0.52-1.04) mg/dL Est GFR (CKD-EPI)AfAm >90 (>60 ml/min/1.73 sqM) Est GFR (CKD-EPI)NonAf 87 (>60 ml/min/1.73 sqM) Glucose 136 H (74-99) mg/dL Calcium 8.7 (8.4-10.2) mg/dL NT-Pro-B Natriuret Pep <20 pg/mL Influenza Type A (PCR) Not Detected (Not Detectd) Influenza Type B (PCR) Not Detected (Not Detectd) RSV (PCR) Not Detected (Not Detectd) SARS-CoV-2 (PCR) Not Detected (Not Detectd) Disposition Clinical Impression: Pneumonia Disposition: ADMITTED IP TO THIS [facility] Condition: Stable Is patient prescribed a controlled substance at d/c from ED?: No Decision Time: 07:14
[2024-03-16] MEDS: IPRATROPIUM-ALBUTEROL 3 ML NEB INHALATION STA (05:59)
[2024-03-16 06:12] LABS: Basophils # (A) 0.1 k/uL (0-0.2); Basophils % (A) 1 %; Eosinophils # (A) 0.3 k/uL (0-0.7); Eosinophils % (A) 2 %; HCT 46.2 % (34.0-46.0); HGB 15.3 gm/dL (11.4-16.0); Lymphocytes # (A) 2.6 k/uL (1.0-4.8); Lymphocytes % (A) 20 %; MCH 30.1 pg (25.0-35.0); MCHC 33.1 g/dL (31.0-37.0); MCV 91.1 fL (80.0-100.0); Monocytes # (A) 0.5 k/uL (0-1.0); Monocytes % (A) 4 %; Neutrophils # (A) 9.5 k/uL (1.3-7.7); Neutrophils % (A) 71 %; Platelet Count 283 k/uL (150-450); RBC 5.07 m/uL (3.80-5.40); RDW 13.5 % (11.5-15.5); WBC 13.4 k/uL (3.8-10.6)
--- NOTE | 2024-03-16 06:33 | XR ---
EXAMINATION TYPE: XR chest 2V DATE OF EXAM: 03/16/2024 COMPARISON: Chest x-ray January 26, 2015 HISTORY: Cough. TECHNIQUE: Frontal and lateral views of the chest are obtained. FINDINGS: There are new bibasilar opacities. No pleural effusion or pneumothorax seen bilaterally. Cardiac silhouette size is upper limits of normal. The osseous structures are intact. IMPRESSION: New bibasilar acute infiltrates and/or atelectasis. [facility], , 03/16/2024 6:30 AM
[2024-03-16] MEDS ORDERED: PNEUMONIA PROTOCOL UTILIZED 1 EACH MISC PO PRN (07:17)
[2024-03-16 07:24] LABS: African American GFR (CKD) >90 (>60 ml/min/1.73 sqM); Anion Gap 8 mmol/L; Blood Urea Nitrogen 10 mg/dL (7-17); Calcium 8.7 mg/dL (8.4-10.2); Carbon Dioxide 25 mmol/L (22-30); Chloride 106 mmol/L (98-107); Glucose 136 mg/dL (74-99); Non-African American GFR(CKD) 87 (>60 ml/min/1.73 sqM); Potassium 3.5 mmol/L (3.5-5.1); Sodium 139 mmol/L (137-145)
[2024-03-16 07:32] LABS: NT-Pro-B-Type Natriuretic Pept <20 pg/mL
[2024-03-16] MEDS: LEVOFLOXACIN 750MG-D5W PMX 750 MG in DEXTROSE/WATER 1 150ML.BAG IVPB SCH (08:14)
[2024-03-16] MEDS: guaiFENesin 600 MG TABLET.ER PO SCH (10:59)
[2024-03-16] MEDS: FLUCONAZOLE 150 MG TAB PO STA (11:00)
[2024-03-16] MEDS: BENZONATATE 100 MG CAP PO PRN (12:03)
[2024-03-16] MEDS: ACETAMINOPHEN TAB 325 MG TAB PO PRN (12:03)
[2024-03-16] MEDS ORDERED: IPRATROPIUM-ALBUTEROL 3 ML NEB INHALATION PRN (14:55)
[2024-03-16] MEDS ORDERED: hydrOXYzine HCL 25 MG TAB PO PRN (15:00)
--- NOTE | 2024-03-16 15:02 | P.HPIM ---
History of Present Illness H&P Date: 03/16/24 History of Presenting Illness: Patient is a very pleasant 44-year-old female with a past medical history of morbid obesity with BMI of 49.9 kg/m, GERD, anxiety, and panic disorder. She presented to the emergency department with a chief complaint of cough and shortness of breath. She reports the symptoms began approximately 3 to 4 days ago and progressively worsened accompanied by fevers, chills, nausea, and back/rib pain with coughing. She reports her cough is productive of greenish- yellow sputum and shortness of breath is worsened with any activity. She denies having any dizziness, lightheadedness, palpitations, nausea, vomiting, or experiencing any numbness/tingling/weakness/swelling in her extremities. She reports her children were ill with similar symptoms but recovered quickly and she came to the hospital because her symptoms seem to only be worsening instead of improving. Upon arrival to our facility, patient underwent evaluation in the emergency department. Vital signs upon arrival show blood pressure 146/75, heart rate 90, respiratory rate 20, temp 98.5 F, and SpO2 of 95% on room air. EKG was completed showing normal sinus rhythm at 84 bpm with T wave inversion in inferior leads III and aVF. Chest x-ray completed showing bibasilar acute inf iltrates. Labs completed and reviewed. CBC showing leukocytosis with WBC count of 13.4 and elevated neutrophils of 9.5. BMP was unremarkable. Blood glucose 136. proBNP less than 20. Influenza A, influenza B, RSV, and COVID PCR's were negative. Patient started on IV antibiotics with Levaquin and admitted under our services to observation unit. Review of systems: Pertinent positives and negatives as discussed in HPI, a complete review of systems was performed and all other systems are negative. Physical exam: Vital signs reviewed and stable. General: Nontoxic, no distress and appears stated age. Derm: Skin warm and dry, normal coloration for ethnicity. Head: Atraumatic, normocephalic and symmetric. Eyes: EOM's intact, no lid lag, and anicteric sclera Mouth: no lip lesions, mucus membranes moist Cardiovascular: regular rate and rhythm with normal S1S2, no murmur, positive po sterior tibial pulses bilaterally, and cap refill < 2 seconds. Lungs: Respirations even, regular, and unlabored on room air. Lungs diminished otherwise no rhonchi, no rales, no wheezing, and no accessory muscle usage. Abdominal: soft, nontender to palpation, no guarding, no appreciable organomega ly Ext: ROM intact. No gross muscle atrophy, no edema, no contractures Neuro: Speech clear, face symmetrical and CN II-XII grossly intact with no noted focal neuro deficits Psych: Alert and oriented to person, place, time, and situation. Appropriate and pleasant affect. Assessment and Plan of Care: Community-acquired pneumonia Leukocytosis, secondary to above Shortness of breath and cough, secondary to above -Oxygenation to be administered and titrated as needed to maintain SPO2 equal to or greater than 92% -Monitor pulse-oximetry -Duonebs as needed for SOB and/or wheezing -Incentive Spirometry -Antibiotics: Levaquin 750 mg IVPB every 24 hours. -Sputum culture and blood culture were sent to lab for analysis. Urine Legionella antigen also pending. GERD -Protonix 40 mg daily. Anxiety and panic disorder -Hydroxyzine 25 mg 4 times daily as needed for anxiety. Data and imaging reviewed: -As stated above in HPI The patient is admitted with an anticipated less than 2 midnight stay for evaluation of community-acquired pneumonia CODE STATUS: Full code DVT prophylaxis: SCDs Anticipated discharge date: Tomorrow morning Anticipated discharge place: Home Patient was seen independently by Nurse Practitioner. This document was prepared using [employer] dictation software. Please allow for errors in accident examiner while rare they do occur. Patient was seen independently by Stephen Devine NP. I agree with the assessment and plan as above. Past Medical History Past Medical History: GERD/Reflux, Hyperlipidemia, Pneumonia, Skin Disorder Additional Past Medical History / Comment(s): palpitations from panic attacks, "exercise induced asthma" as a child. hx gastritis, rosacea, dermatitis, History of Any Multi-Drug Resistant Organisms: MRSA Date of last positivie culture/infection: 01/06/2016 MDRO Source:: [facility] Past Surgical History: Appendectomy Past Anesthesia/Blood Transfusion Reactions: No Reported Reaction Past Psychological History: Anxiety, Panic Disorder Smoking Status: Former smoker Past Alcohol Use History: Occasional Past Drug Use History: None Reported - Past Family History Father Family Medical History: Cancer Additional Family Medical History / Comment(s): from complications from hiv/aids. skin cancer Medications and Allergies Home Medications Medication Instructions Recorded Confirmed Type Albuterol Inhaler [Ventolin Hfa 1 puff INHALATION QID PRN #8 gm 03/19/24 Rx Inhaler] Escitalopram [Lexapro] 10 mg PO DAILY #30 tab 03/19/24 Rx Levofloxacin [Levaquin] 750 mg PO DAILY 3 Days #3 tab 03/19/24 Rx guaiFENesin [Mucinex] 1,200 mg PO Q12HR #56 tab 03/19/24 Rx Allergies Allergy/AdvReac Type Severity Reaction Status Date / Time black walnut Allergy Rash/Hives Verified 03/16/24 07:50 venom-honey bee Allergy Swelling Verified 03/16/24 07:50 Physical Exam Vitals: Vital Signs Temp Pulse Resp BP Pulse Ox 03/16/24 07:58 98.1 F 80 18 124/77 99 03/16/24 06:48 80 20 132/72 95 03/16/24 06:08 88 03/16/24 06:00 87 03/16/24 05:30 98.5 F 90 20 146/75 95 Intake and Output 03/15/24 03/16/24 03/16/24 22:59 06:59 14:59 Other: Weight 136.078 kg Results CBC & Chem 7: 03/17/24 05:18 03/17/24 05:18 Labs: Abnormal Lab Results - Last 24 Hours (Table) 03/16/24 03/16/24 Range/Units 06:02 06:02 WBC 13.4 H (3.8-10.6) k/uL Hct 46.2 H (34.0-46.0) % Neutrophils # 9.5 H (1.3-7.7) k/uL Glucose 136 H (74-99) mg/dL
[2024-03-16] MEDS: IPRATROPIUM-ALBUTEROL 3 ML NEB INHALATION SCH (15:12)
[2024-03-17] MEDS: PANTOPRAZOLE 40 MG TABLET PO SCH (06:30)
--- NOTE | 2024-03-17 07:42 | XR ---
EXAMINATION TYPE: XR chest 1V portable DATE OF EXAM: 03/17/2024 COMPARISON: 03/16/2024 HISTORY: Chest pain TECHNIQUE: Single frontal view of the chest is obtained. FINDINGS: Interstitial prominence seen throughout both lung rodríguez felt to reflect atypical pneumonia. Correlat e clinically. The cardiac silhouette size is within normal limits. The osseous structures are intact. IMPRESSION: 1. Interstitial prominence seen throughout both lung rodríguez felt to reflect atypical pneumonia. Kellen elate clinically. [facility], , 03/17/2024 7:40 AM
[2024-03-17 08:44] LABS: HCT 41.3 % (37.2-46.3); HGB 14.1 g/dL (12.0-15.0); MCH 30.6 pg (27.0-32.0); MCHC 34.1 g/dL (32.0-37.0); MCV 89.6 FL (80.0-97.0); Mean Platelet Volume 10.2 FL (9.5-12.2); NRBC Per 100 WBC 0 X 10*3/uL (0.00-0.01); Platelet Count 243 X 10*3/uL (140-440); RBC 4.61 X 10*6/uL (4.10-5.20); RDW 13.9 % (11.5-14.5); WBC 9.24 X 10*3/uL (4.50-10.00)
[2024-03-17 09:16] LABS: BUN/Creat Ratio 12.38 Ratio (12.00-20.00); Blood Urea Nitrogen 9.9 mg/dL (9.0-27.0); Calcium 8.2 mg/dL (8.7-10.3); Carbon Dioxide 23.5 mmol/L (21.6-31.8); Chloride 103 mmol/L (96-109); Glucose 121 mg/dL (70-110); Potassium 3.9 mmol/L (3.5-5.5); Sodium 139 mmol/L (135-145)
[2024-03-17] MEDS: guaiFENesin 600 MG TABLET.ER PO STA (11:01)
[2024-03-17] MEDS: ESCITALOPRAM 10 MG TAB PO SCH (11:01)
--- NOTE | 2024-03-17 14:25 | P.PN ---
Subjective Progress Note Date: 03/17/24 44-year-old female with a past medical history of morbid obesity with BMI of 49.9 kg/m, GERD, anxiety, and panic disorder. She presented to the emergency department with a chief complaint of cough and shortness of breath. She reports the symptoms began approximately 3 to 4 days ago and progressively worsened accompanied by fevers, chills, nausea, and back/rib pain with coughing. She reports her cough is productive of greenish-yellow sputum and shortness of breath is worsened with any activity. Upon arrival to our facility, patient underwent evaluation in the emergency department. Vital signs upon arrival show blood pressure 146/75, heart rate 90, respiratory rate 20, temp 98.5 F, and SpO2 of 95% on room air. EKG was completed showing normal sinus rhythm at 84 bpm with T wave inversion in inferior leads III and aVF. Chest x-ray completed showing bibasilar acute infiltrates. Labs completed and reviewed. CBC showing leukocytosis with WBC count of 13.4 and elevated neutrophils of 9.5. BMP was unremarkable. Blood glucose 136. proBNP less than 20. Influenza A, influenza B, RSV, and COVID PCR's were negative. Patient started on IV antibiotics with Levaquin and admitted under our services to observation unit. 03/17 Patient was seen and examined. Slightly improved breathing. Still feeling SOB with light ambulation. Reports congestion and thick sputum. We will increase her Mucinex to 1200 mg PO BID. She reports some anxiety, previously on Lexapro which I will restart here. CBC and BMP significant for AG 12.5, glu 121, Ca 8.2. CR shows bilateral patchy infiltrates, similar to CXR on admission. General: non toxic, no distress, appears at stated age Derm: warm, dry Head: atraumatic, normocephalic, symmetric Eyes: EOMI, no lid lag, anicteric sclera Mouth: no lip lesion, mucus membranes moist Cardiovascular: S1 S2 reg. No murmurs, rubs, gallops Lungs: Coarse BS bilaterally, no accessory muscle use Ext: no gross muscle atrophy, no edema, no contractures Neuro: no focal neuro deficits Psych: Alert, oriented, appropriate affect Based on my assessment of this patient, this patient meets a high complexity level of care. Community-acquired pneumonia: Continue Levaquin 750 mg IV QD. Increase Mucinex to 1200 mg PO BID. Leab QID scheduled and PRN for SOB. Toradol 15 mg IV Q6H PRN for pain. GERD: Protonix 40 mg PO QD. Anxiety and panic disorder: Hydroxyzine 25 mg PO QID PRN anxiety. Lexapro 10 mg PO QD. CODE STATUS: FULL CODE DVT Prophylaxis: SCD GI Prophylaxis: Protonix PO. Designated medical POA if patient is not able to make medical decisions for themselves: I have reviewed the following financial consultant notes: I have reviewed the results of the following tests: CBC, BMP. I have ordered the following tests: I have discussed the care of this patient with the following independent historian: RN. I have independently interpreted the following test below: CXR. I have discussed the management of this patient with the following physician: Objective - Vital Signs Vital signs: Vital Signs Temp 97.3 F L 03/17/24 07:00 Pulse 82 03/17/24 11:14 Resp 16 03/17/24 07:00 BP 142/77 03/17/24 07:00 Pulse Ox 93 L 03/17/24 07:00 FiO2 Intake & Output 03/16/24 03/17/24 03/17/24 18:59 06:59 18:59 Intake Total 784 118 Balance 784 118 Weight 136.078 kg Intake: Oral 784 118 Other: Voiding Method Toilet Toilet # Voids 1 1 2 # Bowel Movements 0 - Labs CBC & Chem 7: 03/17/24 05:18 03/17/24 05:18 Labs: Abnormal Lab Results - Last 24 Hours (Table) 03/17/24 Range/Units 05:18 Anion Gap 12.50 H (4.00-12.00) mmol/L Glucose 121 H (70-110) mg/dL Calcium 8.2 L (8.7-10.3) mg/dL Microbiology - Last 24 Hours (Table) 03/16/24 08:06 Blood Culture - Preliminary Blood 03/16/24 10:17 Gram Stain - Preliminary Sputum Sputum Culture - Preliminary
[2024-03-17] MEDS: KETOROLAC 15 MG/ML 1 ML VIAL IVP PRN (15:44)
[2024-03-17] MEDS: guaiFENesin 600 MG TABLET.ER PO SCH (21:08)
[2024-03-18] MEDS ORDERED: ALPRAZolam 0.5 MG TAB PO PRN (12:05)
--- NOTE | 2024-03-18 12:06 | P.PN ---
Subjective Progress Note Date: 03/18/24 44-year-old female with a past medical history of morbid obesity with BMI of 49.9 kg/m, GERD, anxiety, and panic disorder. She presented to the emergency department with a chief complaint of cough and shortness of breath. She reports the symptoms began approximately 3 to 4 days ago and progressively worsened accompanied by fevers, chills, nausea, and back/rib pain with coughing. She reports her cough is productive of greenish-yellow sputum and shortness of breath is worsened with any activity. Upon arrival to our facility, patient underwent evaluation in the emergency department. Vital signs upon arrival show blood pressure 146/75, heart rate 90, respiratory rate 20, temp 98.5 F, and SpO2 of 95% on room air. EKG was completed showing normal sinus rhythm at 84 bpm with T wave inversion in inferior leads III and aVF. Chest x-ray completed showing bibasilar acute infiltrates. Labs completed and reviewed. CBC showing leukocytosis with WBC count of 13.4 and elevated neutrophils of 9.5. BMP was unremarkable. Blood glucose 136. proBNP less than 20. Influenza A, influenza B, RSV, and COVID PCR's were negative. Patient started on IV antibiotics with Levaquin and admitted under our services to observation unit. 03/17 Patient was seen and examined. Slightly improved breathing. Still feeling SOB with light ambulation. Reports congestion and thick sputum. We will increase her Mucinex to 1200 mg PO BID. She reports some anxiety, previously on Lexapro which I will restart here. CBC and BMP significant for AG 12.5, glu 121, Ca 8.2. CR shows bilateral patchy infiltrates, similar to CXR on admission. 03/18 Patient was seen and examined. She continues to cough up thick yellow sput um. Reports anxiety with coughing fits. O2 sat 92% on RA while resting. No new labs done today. We will continue present management for one more day. Hopeful plans for discharge home tomorrow if she continues to improve. General: non toxic, no distress, appears at stated age Derm: warm, dry Head: atraumatic, normocephalic, symmetric Eyes: EOMI, no lid lag, anicteric sclera Mouth: no lip lesion, mucus membranes moist Cardiovascular: S1 S2 reg. No murmurs, rubs, gallops Lungs: Coarse BS bilaterally, no accessory muscle use Ext: no gross muscle atrophy, no edema, no contractures Neuro: no focal neuro deficits Psych: Alert, oriented, appropriate affect Based on my assessment of this patient, this patient meets a high complexity level of care. Community-acquired pneumonia: Continue Levaquin 750 mg IV QD. Increase Mucinex to 1200 mg PO BID. DuoNeb QID scheduled and PRN for SOB. Toradol 15 mg IV Q6H PRN for pain. GERD: Protonix 40 mg PO QD. Anxiety and panic disorder: Hydroxyzine 25 mg PO QID PRN anxiety. Lexapro 10 mg PO QD. Add Xanax 0.5 mg PO TID PRN. CODE STATUS: FULL CODE DVT Prophylaxis: SCD GI Prophylaxis: Protonix PO. Designated medical POA if patient is not able to make medical decisions for themselves: I have reviewed the following technology applications consultant notes: I have reviewed the results of the following tests: I have ordered the following tests: I have discussed the care of this patient with the following independent historian: GARRETT. I have independently interpreted the following test below: I have discussed the management of this patient with the following physician: Objective - Vital Signs Vital signs: Vital Signs Temp 97.9 F 03/18/24 07:00 Pulse 84 03/18/24 11:32 Resp 16 03/18/24 07:00 BP 155/89 03/18/24 07:00 Pulse Ox 92 L 03/18/24 07:00 FiO2 Intake & Output 03/17/24 03/18/24 03/18/24 18:59 06:59 18:59 Intake Total 718 444 Balance 718 444 Intake: Oral 718 444 Other: Voiding Method Toilet # Voids 3 1 # Bowel Movements 1 - Labs CBC & Chem 7: 03/17/24 05:18 03/17/24 05:18 Labs: Microbiology - Last 24 Hours (Table) 03/16/24 10:17 Gram Stain - Final Sputum Sputum Culture - Final 03/16/24 08:06 Blood Culture - Preliminary Blood
[2024-03-19 08:15] VITALS: BP 158/76; RESP 18; TEMP 98.4
--- NOTE | 2024-03-19 10:04 | P.DS ---
Providers Date of admission: 03/16/24 07:18 Expected date of discharge: 03/19/24 Attending physician: Peewee Mar MD Primary care physician: Marc Vasquez [facility] Course: 44-year-old female with a past medical history of morbid obesity with BMI of 49.9 kg/m, GERD, anxiety, and panic disorder. She presented to the emergency department with a chief complaint of cough and shortness of breath. She reports the symptoms began approximately 3 to 4 days ago and progressively worsened accompanied by fevers, chills, nausea, and back/rib pain with coughing. She reports her cough is productive of greenish-yellow sputum and shortness of breath is worsened with any activity. Upon arrival to our facility, patient underwent evaluation in the emergency department. Vital signs upon arrival show blood pressure 146/75, heart rate 90, respiratory rate 20, temp 98.5 F, and SpO2 of 95% on room air. EKG was completed showing normal sinus rhythm at 84 bpm with T wave inversion in inferior leads III and aVF. Chest x-ray completed showing bibasilar acute infiltrates. Labs completed and reviewed. CBC showing leukocytosis with WBC count of 13.4 and elevated neutrophils of 9.5. BMP was unremarkable. Blood glucose 136. proBNP less than 20. Influenza A, influenza B, RSV, and COVID PCR's were negative. Patient started on IV antibiotics with Levaquin and admitted under our services to observation unit. 03/17 Patient was seen and examined. Slightly improved breathing. Still feeling SOB with light ambulation. Reports congestion and thick sputum. We will increase her Mucinex to 1200 mg PO BID. She reports some anxiety, previously on Lexapro which I will restart here. CBC and BMP significant for AG 12.5, glu 121, Ca 8.2. CR shows bilateral patchy infiltrates, similar to CXR on admission. 03/18 Patient was seen and examined. She continues to cough up thick yellow sputum. Reports anxiety with coughing fits. O2 sat 92% on RA while resting. No new labs done today. We will continue present management for one more day. Hopeful plans for discharge home tomorrow if she continues to improve. 03/19 Patient was seen and examined. Reports feeling better. She is 91% on RA. Discharge Plan: Plans to do home O2 eval prior to discharge. Continue Levaquin 750 mg PO QD x 3 days (total 7 days). Albuterol INH PRN, Mucinex PRN prescribed as well. Lexapro prescribed for anxiety. Follow up with your PCP within 1-2 days of discharge. General: non toxic, no distress, appears at stated age Derm: warm, dry Head: atraumatic, normocephalic, symmetric Eyes: EOMI, no lid lag, anicteric sclera Mouth: no lip lesion, mucus membranes moist Cardiovascular: S1 S2 reg. No murmurs, rubs, gallops Lungs: Decreased BS bilaterally, no accessory muscle use Ext: no gross muscle atrophy, no edema, no contractures Neuro: no focal neuro deficits Psych: Alert, oriented, appropriate affect Discharge Diagnosis: Community-acquired pneumonia GERD Anxiety and panic disorder This complex discharge took 35 minutes to complete. Patient Condition at Discharge: Stable Plan - Discharge Summary Discharge Rx Participant: Yes New Discharge Prescriptions: New Escitalopram [Lexapro] 10 mg PO DAILY #30 tab Albuterol Inhaler [Ventolin Hfa Inhaler] 1 puff INHALATION QID PRN #8 gm PRN Reason: Cough Levofloxacin [Levaquin] 750 mg PO DAILY 3 Days #3 tab guaiFENesin [Mucinex] 1,200 mg PO Q12HR #56 tab Discharge Medication List Albuterol Inhaler [Ventolin Hfa Inhaler] 1 puff INHALATION QID PRN #8 gm 03/19/24 [Rx] Escitalopram [Lexapro] 10 mg PO DAILY #30 tab 03/19/24 [Rx] Levofloxacin [Levaquin] 750 mg PO DAILY 3 Days #3 tab 03/19/24 [Rx] guaiFENesin [Mucinex] 1,200 mg PO Q12HR #56 tab 03/19/24 [Rx] Follow up Appointment(s)/Referral(s): Marc Vasquez MD [Primary Care Provider] - 1-2 days Patient Instructions/Handouts: Generalized Anxiety Disorder (ED), Bacterial P neumonia (ED) Discharge Disposition: HOME SELF-CARE
[2024-03-19 10:13] VITALS: PULSE 87
== END 2024-03-19 10:51 | disposition home or self-care (01) ==
LOC: EC 05:22 → 6NMEDSUR 07:18
PROVIDERS: ADMIT Family Medicine; ATTEND Family Medicine
DX: J18.9 Pneumonia, unspecified organism (principal); K21.9 Gastro-esophageal reflux disease without esophagitis; F41.0 Panic disorder [episodic paroxysmal anxiety]; E66.01 Morbid (severe) obesity due to excess calories; Z68.42 Body mass index [BMI] 45.0-49.9, adult; E78.5 Hyperlipidemia, unspecified; Z79.899 Other long term (current) drug therapy; Z20.828 Contact with and (suspected) exposure to other viral communicable diseases; Z16.24 Resistance to multiple antibiotics; Z87.891 Personal history of nicotine dependence; Z87.09 Personal history of other diseases of the respiratory system; Z86.14 Personal history of Methicillin resistant Staphylococcus aureus infection; Z83.0 Family history of human immunodeficiency virus [HIV] disease; Z80.8 Family history of malignant neoplasm of other organs or systems
CPT/HCPCS: 96366 ×3; 96375; 96365; 99285; 36415; 94640 ×7; 94760 ×2; 93005; 83880; 80048 ×2; 87449; 85025; 85027; 87040; 87070; 87205; 87636; 71045; 71046; G0378 ×4; J1956 ×4; J1885

== ENCOUNTER 2024-06-05 10:35 | Day surgery (SDC) | payer BC, OTHER ==
[2024-06-05] MEDS: IV FLUID CONTINUATION 1,000 ML IV ONE ×3 (11:51→12:56)
[2024-06-05 11:54] VITALS: TEMP 97.2
[2024-06-05] MEDS ORDERED: LIDOCAINE 1% (10MG/ML) FOR IV START INTRADERMA PRN (12:02)
[2024-06-05] MEDS: LACTATED RINGERS 1,000 ML IV SCH (12:04)
[2024-06-05] MEDS ORDERED: PROPOFOL 10 MG/ML 20 ML VIAL IV ONE (12:39)
--- NOTE | 2024-06-05 12:54 | P.PCN ---
Date of Procedure: 06/05/24 Procedure(s) Performed: BRIEF HISTORY: Patient is a 44-year-old pleasant right female scheduled for an elective colonoscopy as a part of dilation chronic diarrhea for the last several years duration. PROCEDURE PERFORMED: Colonoscopy random biopsies. PREOPERATIVE DIAGNOSIS: Chronic diarrhea. IV sedation per Anesthesia. PROCEDURE: After informed consent was obtained, the patient, was brought into the endoscopy unit. IV sedation was administered by Anesthesia under continuous monitoring. Digital rectal examination was normal. Initially the Olympus CF-160 flexible video colonoscope was then inserted in the rectum, gradually advanced into the cecum without any difficulty. Careful examination was performed as the scope was gradually being withdrawn. Ileocecal valve and the appendiceal orifice were visualized and appeared normal. Prep was excellent. The median was intubated for descending seizures and appeared normal. Mucosa of the cecum, ascending colon, transverse colon, descending colon, sigmoid colon, and rectum appeared normal. The sigmoid colon there was a 4 mm polyp that was removed by cold biopsy. Retroflexion was performed in the rectum and no lesions were seen. Biopsies were done from the ascending and descending colon to evaluate for microscopic/collagenous colitis the patient tolerated the procedure well. IMPRESSION: 4 mm sigmoid colon polyp status post cold biopsy Rest of the colon appeared normal. RECOMMENDATIONS: Findings of this examination were discussed with the patient as well as her family. She was advised to follow-up with the biopsy results. If the biopsy reveals adenoma she can have repeat colonoscopy in 5 years. Follow-up in the office in 2 weeks.
[2024-06-05 12:58] VITALS: RESP 16
[2024-06-05 13:12] VITALS: BP 115/62; PULSE 66
== END 2024-06-05 13:32 | disposition home or self-care (01) ==
LOC: ORWHC2ENDO 10:35
PROVIDERS: ATTEND Internal Medicine Gastroenterology
DX: K52.9 Noninfective gastroenteritis and colitis, unspecified (principal); K63.5 Polyp of colon; K21.9 Gastro-esophageal reflux disease without esophagitis; F41.0 Panic disorder [episodic paroxysmal anxiety]; E66.01 Morbid (severe) obesity due to excess calories; Z79.899 Other long term (current) drug therapy; Z87.891 Personal history of nicotine dependence; Z91.030 Bee allergy status; Z91.018 Allergy to other foods
CPT/HCPCS: 81025; 45380; J2704